=== PATIENT | female | born 1980 | race Caucasian/White ===

== ENCOUNTER → 2019-03-22 | Outpatient (CLI) | payer BC ==
--- NOTE | 2019-03-23 09:39 | WOMENS IMAGING REPORT ---
EXAM DESCRIPTION: 3D SCREENING MAMMO BILAT COMPLETED DATE/TIME: 03/22/2019 1:15 pm REASON FOR STUDY: Z12.31 SCREENING MAMMO Z12.31 ENCNTR SCREEN MAMMOGRAM FOR MALIGNANT NEOPLASM OF B RE COMPARISON: None. EXAM PARAMETERS: Views: Standard craniocaudal and mediolateral oblique views of each breast recorded using digital acquisition and breast tomosynthesis. Read with the assistance of CAD. .[facility] - [employer] Entry Level Sales Representative Version 9.2 LIMITATIONS: None. FINDINGS: No suspicious masses, suspicious calcifications or architectural distortion. No areas of c oncern. IMPRESSION: NEGATIVE MAMMOGRAM. BIRADS 1. BREAST DENSITY: b. There are scattered areas of fibroglandular density. BIRAD: ASSESSMENT: 1 NEGATIVE RECOMMENDATION: ROUTINE SCREENING COMMENT: The patient has been notified of the results by letter per MQSA requirements. Additional no tification policies are in place for contacting patient with suspicious or incomplete findings. Quality ID #[id number]: The [employer] recommends an annual screening mammogram for women aged 40 years or over. This facility utilizes a reminder system to ensure that all patients receive reminder letters, and/or direct phone calls for appointments. This includes reminders for routine scr eening mammograms, diagnostic mammograms, or other Breast Imaging Interventions when appropriate. Th is patient will be placed in the appropriate reminder system. TECHNICAL DOCUMENTATION: FINDING NUMBER: (1) ASSESSMENT: (1) JOB ID: [id number] [employer]- All Rights Reserved Reading location - IP/workstation name: [email or web address]
== END ==
LOC: WI 11:25
PROVIDERS: ATTEND Nurse Practitioner
DX: Z12.31 Encounter for screening mammogram for malignant neoplasm of breast (principal)
CPT/HCPCS: 77063; 77067

== ENCOUNTER → 2019-03-22 | Outpatient (CLI) | payer BC ==
--- NOTE | 2019-03-22 12:35 | RADIOLOGY REPORT (SQ) ---
EXAM DESCRIPTION: SCOLIOSIS SERIES COMPLETED DATE/TIME: 03/22/2019 12:22 pm REASON FOR STUDY: SCOLIOSIS, UNSPECIFIED,LUMBAGO WITH SCIATICA, LEFT SIDE M54.42 LUMBAGO WITH SCIAT ICA, LEFT SIDE G89.29 OTHER CHRONIC PAIN M41.9 SCOLIOSIS, UNSPECIFIED COMPARISON: None. NUMBER OF VIEWS: One view. TECHNIQUE: Standing AP exam of the thoracolumbar spine with measurement of the HILL angles. LIMITATIONS: None. FINDINGS: GENERALIZED BONY FINDINGS: No anomalies. No worrisome bone lesions. THORACIC SPINE: APEX: T11 ANGULATION: Left DEGREES: 14 LUMBAR SPINE: APEX: L3 ANGULATION: Right DEGREES: 18 CHANGE: Not applicable - no prior studies. OTHER: No other significant findings. IMPRESSION: SCOLIOSIS WITH MEASUREMENTS ABOVE. TECHNICAL DOCUMENTATION: JOB ID: [id number] [employer]- All Rights Reserved Reading location - IP/workstation name: [email or web address]
== END ==
LOC: OD 11:55
PROVIDERS: ATTEND Nurse Practitioner
DX: M41.85 Other forms of scoliosis, thoracolumbar region (principal); M54.42 Lumbago with sciatica, left side; G89.29 Other chronic pain
CPT/HCPCS: 72082

== ENCOUNTER 2020-03-02 09:47 | Day surgery (SDC) | payer BC ==
[2020-02-27 13:27] LABS: HEMATOCRIT 43.3 % (36.0-47.0); HEMOGLOBIN 14.4 g/dL (12.0-15.5); MEAN CORPUSCULAR HEMOGLOBIN 27.3 pg (27.0-33.4); MEAN CORPUSCULAR HGB CONC 33.4 g/dL (32.0-36.0); MEAN CORPUSCULAR VOLUME 82 fl (80-97); RED CELL DISTRIBUTION WIDTH 18.1 % (11.5-14.0); WHITE BLOOD COUNT 6.7 10^3/uL (4.0-10.5)
[2020-02-27 13:31] LABS: APPEARANCE,URINE SLIGHTLY-CLOUDY; BILIRUBIN,URINE NEGATIVE (NEGATIVE); COLOR,URINE YELLOW; GLUCOSE, URINE NEGATIVE (NEGATIVE); KETONES,URINE NEGATIVE (NEGATIVE); LEUKOCYTE ESTERASE,URINE NEGATIVE (NEGATIVE); NITRITE,URINE NEGATIVE (NEGATIVE); PROTEIN,URINE NEGATIVE (NEGATIVE); URINE SPECIFIC GRAVITY 1.009; UROBILINOGEN,URINE NEGATIVE mg/dL (<2.0)
[2020-02-27 14:03] LABS: PLATELET COUNT 262 10^3/uL (150-450)
--- NOTE | 2020-02-27 19:53 | EKG REPORT ---
SEVERITY:- BORDERLINE ECG - SINUS ARRHYTHMIA, RATE 58-79 : Confirmed by: Gonzalez Devi 27-Feb-2020 19:51:34
[~2020-03-02 09:47] MED LIST: DOXYCYCLINE HYCLATE 100 MG in DEXTROSE 5%-WATER 250 ML IV PRN; LACTATED RINGERS 1000 ML IV PRN; LIDOCAINE 0.5% INJ-PF (5 MG/ML) 50 ML SDV SUBCUT PRN
[2020-03-02] MEDS ORDERED: LIDOCAINE 1%/EPINEPHRINE INJ 20 ML VIAL ONE (10:49)
[2020-03-02] MEDS ORDERED: MIDAZOLAM 2 MG/2 ML INJ ONE (11:22)
[2020-03-02] MEDS ORDERED: FENTANYL CITRATE INJ/PF 100 MCG/2 ML AMPUL ONE (11:22)
[2020-03-02] MEDS ORDERED: DEXAMETHASONE SOD PHOSPHATE INJ 4 MG/1 ML VIAL ONE (11:22)
[2020-03-02] MEDS ORDERED: KETOROLAC TROMETHAMINE 60 MG/2 ML SDV ONE (11:22)
[2020-03-02] MEDS ORDERED: ONDANSETRON HCL INJ/PF 4 MG/2 ML SDV ONE (11:22)
[2020-03-02] MEDS ORDERED: MORPHINE SULFATE 10 MG/ML INJ ONE (11:22)
[2020-03-02] MEDS ORDERED: PROPOFOL INJ 200 MG/20 ML VIAL IV ONE (11:23)
[2020-03-02] MEDS ORDERED: LIDOCAINE 2% INJ-PF (20 MG/ML) 10 ML AMPUL ONE (11:23)
[2020-03-02] MEDS ORDERED: ONDANSETRON HCL INJ/PF 4 MG/2 ML SDV IV PRN ×2 (11:53→13:00)
[2020-03-02] MEDS ORDERED: FENTANYL CITRATE INJ/PF 100 MCG/2 ML AMPUL IV PRN ×3 (11:53)
[2020-03-02] MEDS ORDERED: MORPHINE SULFATE 10 MG/ML INJ IV PRN (11:53)
[2020-03-02] MEDS ORDERED: DIPHENHYDRAMINE HCL 50 MG/ML VIAL IV PRN (11:53)
[2020-03-02] MEDS ORDERED: MEPERIDINE HCL/PF INJ 25 MG/1 ML DISP.SYRIN IV PRN (11:53)
[2020-03-02] MEDS ORDERED: OXYCODONE-ACETAMINOPHEN 5-325 MG TABLET PO PRN ×4 (11:53→13:22)
[2020-03-02] MEDS ORDERED: PROMETHAZINE HCL INJ 25 MG/1 ML VIAL IV PRN (11:53)
[2020-03-02] MEDS ORDERED: MEPERIDINE HCL/PF INJ 25 MG/1 ML DISP.SYRIN ONE (12:49)
[2020-03-02] MEDS ORDERED: IBUPROFEN 800 MG TABLET PO PRN (13:21)
[2020-03-02] MEDS ORDERED: HYDROMORPHONE HCL INJ/PF 2 MG/ML AMPULE IV PRN (13:21)
[2020-03-02 14:27] VITALS: BP 141/88
--- NOTE | 2020-03-02 16:50 | Operative Report ---
Operative Report DATE OF SURGERY: 03/02/20 OPERATION: EUA, paracervical Block, Hysteroscopy, D&C, Novasure SURGEON: ELVIS SAMAYOA ANESTHESIA: GA COMPLICATIONS: None ESTIMATED BLOOD LOSS: 5 INTRAOPERATIVE FINDINGS: small cervical polyp removed. Prolifterative appearing endometrium. PROCEDURE: Anesthesia: [Sagrario Arroyo CRNA, Dr Luis] EBL: less than 5ml IVF: [700ml] UOP: void prior to OR Indications: [39yo with DUB and menorrhagia. Negative pap smear and negative EMBx. She has a history of ESSURE for contraception. US noted thickened Endometrium in office but no fibroids. She desires surgical management for her abnormal bleeding with endometrial ablation. The risks, benefits, alternatives were reviewed and she desires to proceed with planned procedure.] Procedure: The patient was taken to the Operating Room where general anesthesia was obtained without difficulty. She was prepped and draped in the normal sterile fashion in the dorsal lithotomy position. Exam under anesthesia was performed and noted above. A speculum was placed in the vagina. The anterior cervix was grasped with a single-tooth tenaculum and the uterus sounded to 8 cm after paracervical block was performed with 8 mL of 1% lidocaine with epinephrine. Cervical polyp was noted and Endocervical Currettage sampling performed. Sequential dilators were then used to dilate the cervix to accommodate the hysteroscope. The hysteroscope was then gently advanced into the uterine cavity in the usual fashion with visualization of the endometiurm as noted above. At this time gentle curettage was performed until a gritty texture was noted. Novasure Ablation performed in the usual fahion. Cavity length 5, Cavity width 4.5, Power 124, Time of ablation 1 minute 25 sec. All instruments were removed from the patient's cervix and vagina. Silver nitrate was applied to the tenaculum site for hemostasis. Sponge lap needle and instrument counts are correct 2. Doxycycline 100mg IV given preop. The patient tolerated the procedure well and was taken to the recovery area awake and in stable condition.
== END 2020-03-02 14:10 | disposition home or self-care (01) ==
LOC: OROUT 09:47
PROVIDERS: ATTEND Student in an Organized Health Care Education/Training Program
DX: N84.0 Polyp of corpus uteri (principal); N93.8 Other specified abnormal uterine and vaginal bleeding; N92.0 Excessive and frequent menstruation with regular cycle; Z03.818 Encounter for observation for suspected exposure to other biological agents ruled out; F41.9 Anxiety disorder, unspecified; D64.9 Anemia, unspecified; Z98.51 Tubal ligation status; I10 Essential (primary) hypertension; Z79.899 Other long term (current) drug therapy; Z97.5 Presence of (intrauterine) contraceptive device
CPT/HCPCS: 58563; 93005; 36415; 85027; 81025; 81001; 88305 ×2; 93010; U0003; J2250; J1100; J3490 ×3; J1885; J3010; J2175; J2405; J7060; J2704; C9803; 87635; 952; J2270